=== PATIENT | female | born 1960 | race Asian ===

== ENCOUNTER → 2018-04-14 13:13 | Outpatient (CLI) | payer BC, SELFPAY ==
--- NOTE | 2018-04-14 | DI.MG.S_ITS ---
BILATERAL DIGITAL SCREENING MAMMOGRAM 3D/2D WITH CAD: 04/14/2018 CLINICAL: Routine screening. Comparison is made to exams dated: 03/04/2017 mammogram, 02/27/2016 mammogram, and 02/25/2015 mammogram - [facility]. The tissue of both breasts is heterogeneously dense. This may lower the sensitivity of mammography. Current study was also evaluated with a Computer Aided Detection (CAD) system. There is architectural distortion in the right breast posterior depth central to the nipple seen on the mediolateral oblique view only. No other significant masses, calcifications, or other findings are seen in either breast. IMPRESSION: INCOMPLETE: NEEDS ADDITIONAL IMAGING EVALUATION The architectural distortion in the right breast is indeterminate. Additional views with possible ultrasound are recommended. This exam was interpreted at Station ID: [id number]. NOTE: For mammograms, a report in lay terms will be sent to the patient. Approximately 15% of breast malignancies will not be visualized mammographically. In the management of a palpable breast mass, a negative mammogram must not discourage biopsy of a clinically suspicious lesion. Electronically Signed By: Davina wynne/heather:04/18/2018 07:13:55 Entry: ayan - 04/18/2018 07:13:55 letter sent: Additional Imaging Needed ACR BI-RADS Category 0: Incomplete 3340F
== END ==
PROVIDERS: Family Provider Family Medicine; PCP Family Medicine; Visit Provider Family Medicine
DX: Z12.31 Encounter for screening mammogram for malignant neoplasm of breast (principal); R92.8 Other abnormal and inconclusive findings on diagnostic imaging of breast
CPT/HCPCS: 77063; 77067

== ENCOUNTER → 2018-05-19 08:48 | Outpatient (CLI) | payer BC, SELFPAY ==
--- NOTE | 2018-05-19 | DI.MG.S_ITS ---
UNILATERAL RIGHT DIGITAL DIAGNOSTIC MAMMOGRAM 3D/2D WITH ADDITIONAL VIEWS: 05/19/2018 CLINICAL: Additional evaluation requested from prior study. Comparison is made to exams dated: 04/14/2018 mammogram, 03/04/2017 mammogram, and 02/27/2016 mammogram - [facility]. The tissue of the right breast is heterogeneously dense. This may lower the sensitivity of mammography. The architectural distortion in the right breast posterior depth central to the nipple seen on the mediolateral oblique view only is not seen in additional views. No other significant masses or calcifications are seen in the breast. IMPRESSION: BENIGN There is no mammographic evidence of malignancy. A 1 year screening mammogram is recommended. NOTE: For mammograms, a report in lay terms will be sent to the patient. Approximately 15% of breast malignancies will not be visualized mammographically. In the management of a palpable breast mass, a negative mammogram must not discourage biopsy of a clinically suspicious lesion. Electronically Signed By: Davina Lovett M.D. lk/:05/19/2018 09:31:38 letter sent: Normal Exam ACR BI-RADS Category 2: Benign Finding(s) 3342F
== END ==
PROVIDERS: Family Provider Family Medicine; PCP Family Medicine; Visit Provider Family Medicine
DX: R92.8 Other abnormal and inconclusive findings on diagnostic imaging of breast (principal)
CPT/HCPCS: 77065; G0279

== ENCOUNTER → 2018-12-18 13:38 | Outpatient (CLI) | payer BC, SELFPAY ==
--- NOTE | 2018-12-18 | DI.RAD.S_ITS ---
This blank DEXA report has been sent in error by the PACS system. The correct and complete report will be forthcoming in 1-2 days. Thank you for your patience and understanding. Dictated by: Nayan Sellers M.D. on 12/18/2018 at 15:02 Approved by: Nayan Sellers M.D. on 12/18/2018 at 15:02
== END ==
PROVIDERS: PCP Family Medicine; Referring Provider Internal Medicine Endocrinology, Diabetes & Metabolism; Visit Provider Family Medicine
DX: M81.0 Age-related osteoporosis without current pathological fracture (principal); Z78.0 Asymptomatic menopausal state; Z82.62 Family history of osteoporosis
CPT/HCPCS: 77080

== ENCOUNTER → 2019-05-14 14:58 | Outpatient (CLI) | payer BC, SELFPAY ==
--- NOTE | 2019-05-14 | DI.MG.S_ITS ---
BILATERAL DIGITAL SCREENING MAMMOGRAM 3D/2D WITH CAD: 05/14/2019 CLINICAL: Routine screening. Comparison is made to exams dated: 04/14/2018 mammogram, 03/04/2017 mammogram, and 02/27/2016 mammogram - [facility]. The tissue of both breasts is heterogeneously dense. This may lower the sensitivity of mammography. Current study was also evaluated with a Computer Aided Detection (CAD) system. No significant masses, calcifications, or other findings are seen in either breast. There has been no significant interval change. IMPRESSION: NEGATIVE There is no mammographic evidence of malignancy. A 1 year screening mammogram is recommended. This exam was interpreted at Station ID: [id number]. NOTE: For mammograms, a report in lay terms will be sent to the patient. Approximately 15% of breast malignancies will not be visualized mammographically. In the management of a palpable breast mass, a negative mammogram must not discourage biopsy of a clinically suspicious lesion. Electronically Signed By: Davina wynne/heather:05/14/2019 15:31:04 letter sent: Normal Exam ACR BI-RADS Category 1: Negative 3341F
== END ==
PROVIDERS: PCP Family Medicine; Visit Provider Family Medicine
DX: Z12.31 Encounter for screening mammogram for malignant neoplasm of breast (principal)
CPT/HCPCS: 77063; 77067

== ENCOUNTER → 2019-08-01 09:43 | Outpatient (CLI) | payer BC, SELFPAY ==
--- NOTE | 2019-08-01 | DI.US.S_ITS ---
PROCEDURE: US PELVIC COMPLETE INDICATIONS: POSTMENOPAUSAL BLEEDING TECHNIQUE: Real-time scanning was performed of the pelvic organs, with image documentation. Additional endovaginal scanning was necessary due to incomplete visualization of the adnexal and endometrial structures by transabdominal scanning. COMPARISON: None. FINDINGS: Transabdominal scanning: Limited scanning through the kidneys shows no hydronephrosis. No pathologic free abdominal or pelvic fluid. Endovaginal scanning: Uterus: The retroverted uterus measures 8.2 x 6.1 x 4.9 cm. The endometrium measures 4 mm in combined thickness. The endometrium is displaced by an adjacent intramural uterine fibroid visualized in the mid, anterior uterine fundus. This measures 5.5 x 4.9 x 4.8 cm. A second fibroid is noted in the left anterior uterus and also intramural in location measuring 1.5 x 1.4 x 1.4 cm. Small slip of fluid is seen in the endometrial cavity. Ovaries: Right ovary measures 3.2 x 3.5 x 1.9 cm. Simple cyst noted measuring 2.6 cm. The left ovary measures 2.0 x 1.5 x 0.7 cm. No left-sided ovarian/adnexal mass. IMPRESSION: 1. There are 2 intramural uterine fibroids identified within the uterus with the largest noted in the anterior mid uterine fundus measuring up to 5.5 cm in size. It comes in close proximity to the endometrium causing mild mass effect/displacement. However, it does not appear to be submucosal in location. 2. Unremarkable sonographic appearance of the endometrium without sonographic evidence for abnormal thickening or atrophy. Dictated by: Bradley Lindsay M.D. on 08/01/2019 at 18:42 Approved by: Bradley Lindsay M.D. on 08/01/2019 at 18:48
== END ==
PROVIDERS: PCP Family Medicine; Visit Provider Family Medicine
DX: N95.0 Postmenopausal bleeding (principal); D25.1 Intramural leiomyoma of uterus
CPT/HCPCS: 76830; 76856

== ENCOUNTER → 2019-12-10 12:41 | Outpatient (CLI) | payer BC, SELFPAY | PROVIDERS: PCP Family Medicine; Referring Provider Internal Medicine Endocrinology, Diabetes & Metabolism; Visit Provider Family Medicine | DX: M81.0 Age-related osteoporosis without current pathological fracture (principal); Z78.0 Asymptomatic menopausal state; Z82.62 Family history of osteoporosis | CPT/HCPCS: 77080 ==

== ENCOUNTER → 2020-07-10 10:37 | Outpatient (CLI) | payer BC, SELFPAY ==
--- NOTE | 2020-07-10 | DI.MG.S_ITS ---
BILATERAL DIGITAL SCREENING MAMMOGRAM 3D/2D WITH CAD: 07/10/2020 CLINICAL: Routine screening. Comparison is made to exams dated: 05/14/2019 mammogram, 04/14/2018 mammogram, and 03/04/2017 mammogram - [facility]. The tissue of both breasts is heterogeneously dense. This may lower the sensitivity of mammography. Current study was also evaluated with a Computer Aided Detection (CAD) system. There is a focal asymmetry in the right breast at 11 o'clock middle depth. No other significant masses, calcifications, or other findings are seen in either breast. IMPRESSION: INCOMPLETE: NEEDS ADDITIONAL IMAGING EVALUATION The focal asymmetry in the right breast is indeterminate. Additional views with possible ultrasound are recommended. This exam was interpreted at Station ID: [id number]. NOTE: For mammograms, a report in lay terms will be sent to the patient. Approximately 15% of breast malignancies will not be visualized mammographically. In the management of a palpable breast mass, a negative mammogram must not discourage biopsy of a clinically suspicious lesion. Electronically Signed By: Davina wynne/heather:07/10/2020 12:21:54 letter sent: Additional Imaging Needed ACR BI-RADS Category 0: Incomplete 3340F
== END ==
PROVIDERS: PCP Family Medicine; Referring Provider Family Medicine; Visit Provider Family Medicine
DX: Z12.31 Encounter for screening mammogram for malignant neoplasm of breast (principal)
CPT/HCPCS: 77063; 77067

== ENCOUNTER → 2020-08-18 09:26 | Outpatient (CLI) | payer BC, SELFPAY ==
--- NOTE | 2020-08-18 | DI.MG.S_ITS ---
UNILATERAL RIGHT DIGITAL DIAGNOSTIC MAMMOGRAM 3D/2D WITH ADDITIONAL VIEWS: 08/18/2020 CLINICAL: Additional evaluation requested from prior study. Comparison is made to exams dated: 07/10/2020 mammogram, 05/14/2019 mammogram, 05/19/2018 mammogram, 04/14/2018 mammogram, 03/04/2017 mammogram, and 02/27/2016 mammogram - [facility]. The tissue of right breast is heterogeneously dense. This may lower the sensitivity of mammography. There is a focal asymmetry in the right breast at 11 o'clock middle depth. This is not seen in additional views. No other significant masses or calcifications are seen in the breast. IMPRESSION: NEGATIVE There is no mammographic evidence of malignancy. Focal asymmetry does not persist on additional views. A 1 year screening mammogram is recommended. Exam findings conveyed to the patient. This exam was interpreted at Station ID: [id number]. NOTE: For mammograms, a report in lay terms will be sent to the patient. Approximately 15% of breast malignancies will not be visualized mammographically. In the management of a palpable breast mass, a negative mammogram must not discourage biopsy of a clinically suspicious lesion. Electronically Signed By: Sy Baker M.D. slc/:08/18/2020 10:02:26 letter sent: Normal Exam ACR BI-RADS Category 1: Negative 3341F
== END ==
PROVIDERS: PCP Family Medicine; Referring Provider Family Medicine; Visit Provider Family Medicine
DX: R92.8 Other abnormal and inconclusive findings on diagnostic imaging of breast (principal)
CPT/HCPCS: 77065; G0279

== ENCOUNTER → 2020-12-15 14:42 | Outpatient (CLI) | payer BC, SELFPAY | PROVIDERS: PCP Family Medicine; Referring Provider Family Medicine; Visit Provider Family Medicine | DX: M81.0 Age-related osteoporosis without current pathological fracture (principal); Z78.0 Asymptomatic menopausal state; Z82.62 Family history of osteoporosis | CPT/HCPCS: 77080 ==

== ENCOUNTER → 2021-08-29 08:56 | Outpatient (CLI) | payer BC, SELFPAY ==
--- NOTE | 2021-08-29 08:57 | DI.MG.S_ITS ---
BILATERAL DIGITAL SCREENING MAMMOGRAM 3D/2D WITH CAD: 08/29/2021 CLINICAL: Routine screening. Comparison is made to exams dated: 08/18/2020 mammogram, 07/10/2020 mammogram, and 05/14/2019 mammogram - [facility]. The tissue of both breasts is heterogeneously dense. This may lower the sensitivity of mammography. Current study was also evaluated with a Computer Aided Detection (CAD) system. There are possible new grouped linear calcifications in the right breast central to the nipple anterior depth. No other significant masses, calcifications, or other findings are seen in either breast. IMPRESSION: INCOMPLETE: NEEDS ADDITIONAL IMAGING EVALUATION The possible new grouped linear calcifications in the right breast are indeterminate. Diagnostic right mammogram for additional views to include mediolateral and spot magnification views is recommended with possible ultrasound. This exam was interpreted at Station ID: [id number]. NOTE: For mammograms, a report in lay terms will be sent to the patient. Approximately 15% of breast malignancies will not be visualized mammographically. In the management of a palpable breast mass, a negative mammogram must not discourage biopsy of a clinically suspicious lesion. Electronically Signed By: Bradley Lindsay M.D. aty/:08/29/2021 14:36:42 letter sent: Additional Imaging Needed ACR BI-RADS Category 0: Incomplete 3340F
== END ==
PROVIDERS: PCP Family Medicine; Referring Provider Family Medicine; Visit Provider Family Medicine
DX: Z12.31 Encounter for screening mammogram for malignant neoplasm of breast (principal)
CPT/HCPCS: 77063; 77067

== ENCOUNTER → 2021-09-23 14:12 | Outpatient (CLI) | payer BC, SELFPAY ==
--- NOTE | 2021-09-23 14:13 | DI.MG.S_ITS ---
UNILATERAL RIGHT DIGITAL DIAGNOSTIC MAMMOGRAM 3D/2D WITH ADDITIONAL VIEWS: 09/23/2021 CLINICAL: Additional evaluation requested from prior study. Comparison is made to exams dated: 08/29/2021 mammogram, 08/18/2020 mammogram, and 07/10/2020 mammogram - [facility]. The tissue of right breast is heterogeneously dense. This may lower the sensitivity of mammography. There are grouped fine calcifications in the right breast central to the nipple anterior depth. These are less prominent. No other significant masses or calcifications are seen in the breast. IMPRESSION: PROBABLY BENIGN The grouped fine calcifications in the right breast are probably benign. A follow-up mammogram in 6 months is recommended. A follow-up mammogram in 6 months is recommended to demonstrate stability. This exam was interpreted at Station ID: [id number]. NOTE: For mammograms, a report in lay terms will be sent to the patient. Approximately 15% of breast malignancies will not be visualized mammographically. In the management of a palpable breast mass, a negative mammogram must not discourage biopsy of a clinically suspicious lesion. Electronically Signed By: Jose Antonio junior/heather:09/23/2021 14:34:29 letter sent: Followup Recommended ACR BI-RADS Category 3: Probably benign 3343F
== END ==
PROVIDERS: PCP Family Medicine; Referring Provider Family Medicine; Visit Provider Family Medicine
DX: R92.8 Other abnormal and inconclusive findings on diagnostic imaging of breast (principal); R92.1 Mammographic calcification found on diagnostic imaging of breast
CPT/HCPCS: 77065; G0279

== ENCOUNTER → 2021-12-18 12:36 | Outpatient (CLI) | payer BC, SELFPAY | PROVIDERS: PCP Family Medicine; Referring Provider Family Medicine; Visit Provider Family Medicine | DX: M81.0 Age-related osteoporosis without current pathological fracture (principal); Z78.0 Asymptomatic menopausal state; Z82.62 Family history of osteoporosis | CPT/HCPCS: 77080 ==

== ENCOUNTER → 2022-08-12 13:30 | Outpatient (CLI) | payer BC, SELFPAY ==
--- NOTE | 2022-08-12 | DI.MG.S_ITS ---
BILATERAL DIGITAL DIAGNOSTIC MAMMOGRAM 3D/2D SHORT-TERM FOLLOW-UP: 08/12/2022 CLINICAL: Short term follow up of the right breast, due for bilateral imaging. Comparison is made to exams dated: 09/23/2021 mammogram, 08/29/2021 mammogram, 08/18/2020 mammogram, and 07/10/2020 mammogram - [facility]. Both breasts are heterogeneously dense, which may obscure small masses (category c / 51-75% glandular tissue). There are stable grouped fine calcifications in the right breast central to the nipple anterior depth. No other significant masses, calcifications, or other findings are seen in either breast. IMPRESSION: PROBABLY BENIGN The stable grouped fine calcifications in the right breast are probably benign. A follow-up mammogram in 6 months is recommended. A follow-up mammogram in 6 months is recommended to demonstrate stability. Based on the Tyrer Cuzick model (a risk assessment model) the patient's lifetime risk is 12.8% and her 10 year risk is 5.8%. According to the ACR, ACS, and NCCN guidelines, an annual breast MRI exam along with mammogram is recommended if the patient's lifetime risk is 20% or greater. This exam was interpreted at Station ID: [id number]. NOTE: For mammograms, a report in lay terms will be sent to the patient. Approximately 15% of breast malignancies will not be visualized mammographically. In the management of a palpable breast mass, a negative mammogram must not discourage biopsy of a clinically suspicious lesion. Electronically Signed By: Kelton Rivera M.D., jr/heather:08/12/2022 14:17:55 letter sent: Followup Recommended ACR BI-RADS Category 3: Probably benign 3343F
== END ==
PROVIDERS: PCP Family Medicine; Referring Provider Family Medicine; Visit Provider Family Medicine
DX: N63.10 Unspecified lump in the right breast, unspecified quadrant (principal); R92.1 Mammographic calcification found on diagnostic imaging of breast
CPT/HCPCS: 77066; G0279

== ENCOUNTER → 2022-12-21 14:13 | Outpatient (CLI) | payer BC, SELFPAY | PROVIDERS: PCP Family Medicine; Referring Provider Family Medicine; Visit Provider Family Medicine | DX: M81.0 Age-related osteoporosis without current pathological fracture (principal); Z78.0 Asymptomatic menopausal state; Z79.83 Long term (current) use of bisphosphonates | CPT/HCPCS: 77080 ==

== ENCOUNTER → 2023-11-30 10:58 | Outpatient (CLI) | payer SELFPAY ==
--- NOTE | 2023-11-30 11:12 | DI.DEXA.S_ITS ---
Bone Density Report Name: ARVIND BARNES Age: 63 Sex: Female Ethnicity: Date of : 1960 Indication: postmenopausal osteoporosis; monitoring treatment; Referring Provider: TOÑO JAMES Study: Bone densitometry was performed. Exam Date: November 30, 2023 Accession number: [id number] Bone Density: Region BMD T-score Z-score Classification AP Spine(L1-L4) 0.732 -2.9 -1.1 Osteoporosis Femoral Neck (Left) 0.618 -2.1 -0.6 Osteopenia Total Hip (Left) 0.678 -2.2 -1.0 Osteopenia Femoral Neck (Right) 0.633 -1.9 -0.5 Osteopenia Total Hip (Right) 0.693 -2.0 -0.8 Osteopenia Total Hip Mean 0.686 -2.1 -0.9 Osteopenia World Health Organization criteria for BMD impression classify patients as: Normal (T-score at or above -1.0), Osteopenia (T-score between -1.0 and -2.5), or Osteoporosis (T-score at or below -2.5). 10-year Fracture Risk: FRAX not reported because: Some T-score for Spine Total or Hip Total or Femoral Neck at or below -2.5 Treated for osteoporosis Previous Exams: -- Region Exam Age BMD T-score BMD Change BMD Change Date g/cm2 vs Baseline vs Previous -- AP Spine (L1-L4) 11/30/2023 63 0.732 -2.9 -0.038 (-4.9%)# -0.004 (-0.5%) 12/21/2022 62 0.736 -2.8 -0.034 (-4.5%)# -0.028 (-3.6%)# 12/18/2021 61 0.763 -2.6 -0.007 (-0.9%) -0.007 (-0.9%) 12/15/2020 60 0.770 -2.5 Total Hip(Left) 11/30/2023 63 0.678 -2.2 0.055 (8.9%)# 0.001 (0.1%)# 12/21/2022 62 0.677 -2.2 0.054 (8.7%)# 0.012 (1.8%)# 12/18/2021 61 0.665 -2.3 0.042 (6.8%)* 0.042 (6.8%)* 12/15/2020 60 0.623 -2.6 Total Hip(Right) 11/30/2023 63 0.693 -2.0 0.052 (8.1%)# -0.021 (-2.9%)# 12/21/2022 62 0.714 -1.9 0.073 (11.3%)# 0.056 (8.6%)# 12/18/2021 61 0.658 -2.3 0.016 (2.6%) 0.016 (2.6%) 12/15/2020 60 0.641 -2.5 -- *Denotes significance at 95% confidence level, LSC for AP Spine = 0.022 g/cm2, LSC for Total Hip = 0.027 g/cm2 # Denotes dissimilar scan types or analysis methods Impression: The patient has osteoporosis, based on the Total Spine T-score. No significant bone loss was observed. Discussion: PATIENT UNDER TREATMENT WITH NO SIGNIFICANT BMD LOSS SINCE LAST EXAM. In an untreated patient, BMD typically declines with age. A lack of decline or gain is usually a sign that treatment is efficacious and fracture risk is reduced. It is important to ask patients whether they are taking their medications and to encourage continued and appropriate compliance with their osteoporosis therapies to reduce fracture risk. It is also important to review their risk factors and encourage appropriate calcium and vitamin D intakes, exercise, fall prevention and other lifestyle measures. Follow-Up: Consider a repeat BMD and Vertebral Fracture Assessment (VFA) exam in 2 years or sooner if medically necessary, to reassess this patient's status. Reported by: SARI KILGORE MD on 11/30/2023 11:26:00 AM.
== END ==
PROVIDERS: PCP Family Medicine; Referring Provider Internal Medicine Endocrinology, Diabetes & Metabolism; Visit Provider Internal Medicine Endocrinology, Diabetes & Metabolism
DX: M81.0 Age-related osteoporosis without current pathological fracture (principal); Z79.83 Long term (current) use of bisphosphonates
CPT/HCPCS: 77080

== ENCOUNTER → 2024-06-07 10:58 | Outpatient (CLI) | payer MEDICARE, OTHER, SELFPAY ==
--- NOTE | 2024-06-07 11:02 | DI.RAD.S_ITS ---
PROCEDURE: XR LUMBAR SPINE 2-3V INDICATIONS: BACK PAIN TECHNIQUE: 3 views of the lumbar spine were acquired. COMPARISON: None. FINDINGS: Bones: 5 [id number] vertebrae are present. There is normal bony alignment. There is a moderate, sclerotic, chronic appearing compression fracture of L3 with scalloping of the superior endplate and sclerosis throughout much of the vertebral body. Mild sclerotic endplate spurring of L4. No suspicious bony lesions. Soft tissues: Overlying bowel gas pattern is normal. No suspicious soft tissue calcifications. IMPRESSION: Chronic appearing L3 compression fracture, but not present in 2017. Clinical correlation recommended. Dictated by: Susanna Lanza M.D. on 06/07/2024 at 16:40 Approved by: Susanna Lanza M.D. on 06/07/2024 at 16:41
--- NOTE | 2024-06-07 11:03 | DI.RAD.S_ITS ---
PROCEDURE: XR THORACIC SPINE 3V INDICATIONS: BACK PAIN TECHNIQUE: 3 views of the thoracic spine were acquired. COMPARISON: None. FINDINGS: Bones: No fractures or dislocations. No suspicious bony lesions. Degenerative endplate changes are noted in mid to lower thoracic spine. 12 pairs of ribs are noted, and appear intact where visualized. Soft tissues: No paravertebral stripe thickening. IMPRESSION: No acute compression fracture or spondylolisthesis. Mild degenerative disc disease in mid to lower thoracic spine. Dictated by: Дмитрий Coulter M.D. on 06/07/2024 at 13:58 Approved by: Дмитрий Coulter M.D. on 06/07/2024 at 13:59
== END ==
LOC: LAB 11:01 → RAD 11:04
PROVIDERS: PCP Family Medicine; Referring Provider Family Medicine; Visit Provider Family Medicine
DX: M51.34 Other intervertebral disc degeneration, thoracic region (principal); M48.56XA Collapsed vertebra, not elsewhere classified, lumbar region, initial encounter for fracture; M25.551 Pain in right hip; M54.50 Low back pain, unspecified; G89.29 Other chronic pain
CPT/HCPCS: 72072; 72100

== ENCOUNTER → 2025-04-03 11:47 | Outpatient (CLI) | payer MEDICARE, OTHER, SELFPAY ==
--- NOTE | 2025-04-03 11:48 | DI.RAD.S_ITS ---
PROCEDURE: XR DEXA AXIAL SKELETON INDICATIONS: SCREENING FOR OSTEOPOROSIS COMPARISON: [facility], [place], XR DEXA AXIAL SKELETON, 11/30/2023, 11:12. FINDINGS: Lumbar Spine: Bone mineral density 0.755 (previously 0.732) g/cm2, T score -2.5 (previously -2.9). Left Femoral Neck: Bone mineral density 0.622 (previously 0.618) g/cm2, T score -2.0 (previously -2.1). Left Hip: Bone mineral density 0.654 (previously 0.678) g/cm2, T score -2.4 (previously -2.2). Fracture Risk Calculation (when applicable): 10-year fracture risk of a major osteoporotic fracture 9.7 percent and of a hip fracture 1.1 percent. (T score greater or equal to -1.0 to: NORMAL) (T score from -1.1 to -2.4: OSTEOPENIA) (T score less than or equal to -2.5: OSTEOPOROSIS) IMPRESSION: Osteoporosis--- recommend repeat DEXA in 2 years or less for reassessment of response to treatment. Follow-up guidelines as follows: Osteoporosis: Consider a repeat DEXA and Vertebral Fracture Assessment (VFA) exam in 2 years or sooner if medically necessary, to reassess this patient's status. Osteopenia: Consider a repeat DEXA in 2-3 years to reassess this patient's status, or if there is a new clinical indication. Normal: Consider a repeat DEXA in 5 years or sooner, or if there is a new clinical indication. All treatment decisions require clinical judgment and consideration of individual patient factors, including patient preferences, comorbidities, previous drug use, risk factors not captured in the FRAX model (e.g., frailty, falls, vitamin D deficiency, increased bone turnover, interval significant decline in bone density ) and possible under- or over-estimation of fracture risk by FRAX. In addition, the NOF Guide recommends that FDA-approved medical therapies be considered in postmenopausal women and men age >= 50 years with a: * Hip or vertebral (clinical or morphometric) fracture * T-score of <=-2.5 at the spine or hip * Ten-year fracture probability by FRAX of >= 3% for hip fracture or >=20% for major osteoporotic fracture. Dictated by: Balbir Graham M.D. on 04/03/2025 at 21:23 Approved by: Balbir Graham M.D. on 04/03/2025 at 21:27
== END ==
LOC: RAD 11:47
PROVIDERS: PCP Family Medicine; Referring Provider Internal Medicine Endocrinology, Diabetes & Metabolism; Visit Provider Internal Medicine Endocrinology, Diabetes & Metabolism
DX: M81.0 Age-related osteoporosis without current pathological fracture (principal)
CPT/HCPCS: 77080